=== PATIENT | male | born 1970 | race Caucasian/White ===

== ENCOUNTER 2018-09-05 07:06 | Emergency (ER) | payer OTHER ==
[2018-09-05 07:19] VITALS: BP 146/99
--- NOTE | 2018-09-05 07:26 | UC ---
Throat Pain/Nasal Hemal HPI - HPI Summary HPI Summary: One week history of sore throat, without fever, some dysphagia. Awoke with throat pain in the night, sense of right ear plugging. No cough, no headache. - History of Current Complaint Chief Complaint: UCRespiratory Stated Complaint: THROAT COMPLAINT Time Seen by Provider: 09/05/18 07:19 Hx Obtained From: Patient Onset/Duration: Gradual Onset, Lasting Days Severity: Moderate Pain Intensity: 5 Cough: None Associated Signs & Symptoms: Positive: Dysphagia Related History: Seasonal Allergies - uses zyrtec daily - Epiglottits Risk Factors Epiglottis Risk Factors: Negative - Allergies/Home Medications Allergies/Adverse Reactions: Allergies Allergy/AdvReac Type Severity Reaction Status Date / Time No Known Allergies Allergy Verified 09/05/18 07:14 PMH/Surg Hx/FS Hx/Imm Hx Previously Healthy: Yes Cardiovascular History: Hypertension, Other - high cholesterol - Surgical History Surgical History: None - Family History Known Family History: Positive: Hypertension, Non-Contributory - Social History Occupation: Employed Full-time Lives: With Family Alcohol Use: Occasionally Substance Use Type: None Smoking Status (MU): Never Smoked Tobacco Review of Systems All Other Systems Reviewed And Are Negative: Yes Constitutional: Positive: Negative Skin: Positive: Negative Eyes: Positive: Negative ENT: Positive: Sore Throat, Ear Ache Cardiovascular: Positive: Other - treated hypertension; has not taken medications today. Neurological: Positive: Negative Psychological: Positive: Negative Is Patient Immunocompromised?: No Physical Exam Triage Information Reviewed: Yes Appearance: Well-Appearing, Pain Distress - mild Vital Signs: Initial Vital Signs Temp 97.2 F 09/05/18 07:14 Pulse 98 09/05/18 07:14 Resp 15 09/05/18 07:14 BP 146/99 09/05/18 07:14 Pulse Ox 96 09/05/18 07:14 Eyes: Positive: Conjunctiva Clear ENT: Positive: Pharyngeal erythema, Tonsillar swelling - right tonsillar swelling to midline, erythematous, no exudate. Uvula midline Dental Exam: Normal Neck: Positive: Nontender, No Lymphadenopathy Respiratory: Positive: Lungs clear, Normal breath sounds Cardiovascular: Positive: RRR, No Murmur Musculoskeletal Exam: Normal Neurological Exam: Normal Psychological Exam: Normal Throat Pain/Nasal Course/Dx - Course Course Of Treatment: begin clindamycin for treatment of unilateral tonsillitis. Follow up if not improving. - Differential Dx/Diagnosis Differential Diagnosis/HQI/PQRI: Pharyngitis, Tonsillitis, URI Provider Diagnosis: Tonsillitis Discharge - Sign-Out/Discharge Documenting (check all that apply): Patient Departure All imaging exams completed and their final reports reviewed: No Studies - Discharge Plan Condition: Stable Disposition: HOME Prescriptions: Clindamycin Cap(NF) [Clindamycin Cap 300 mg Cap(NF)] 300 mg PO Q6H #28 cap Patient Education Materials: Tonsillitis (ED) Referrals: Audie Vicente DO [Primary Care Provider] - Additional Instructions: Begin use of clindamycin. If you do not see a good response within 24 to 48 hours, please follow up with Dr. Vicente or here. Should you develop fever and difficulty breathing please go to the emergency room. I suggest warm water and salt gargling, which can help to decrease pain and swelling of the tonsil. - Billing Disposition and Condition Condition: STABLE Disposition: Home
== END 2018-09-05 07:48 | disposition home or self-care (01) ==
LOC: UCCORT 07:06
DX: J03.90 Acute tonsillitis, unspecified (principal); I10 Essential (primary) hypertension
CPT/HCPCS: 99212; G0463